=== PATIENT | female | born 1990 | race Asian ===

== ENCOUNTER 2017-03-29 15:36 | Outpatient (CLI) | payer BC ==
[2017-03-29 15:50] VITALS: BP 127/73
[2017-03-29] MEDS ORDERED: VITAMIN B COMP1 EACH PO (16:14)
[2017-03-29] MEDS ORDERED: PRENATAL TABLE1 EAC3 PO (16:15)
== END 2017-03-29 16:30 | disposition home or self-care (01) ==
LOC: LDRP-OP 15:36 → 2WEST 15:37 → LDRP-OP 06-22 13:37
DX: Z03.79 Encounter for other suspected maternal and fetal conditions ruled out (principal); Z3A.00 Weeks of gestation of pregnancy not specified
CPT/HCPCS: 59025; G0378

== ENCOUNTER 2017-05-23 20:09 | Inpatient (IN) | payer BC ==
[~2017-05-23] VITALS: Ht 154.9 cm; Wt 87.1 kg
[2017-05-23] VITALS (8 sets, daily range): BP systolic 122–136; BP diastolic 59–92
[~2017-05-23 20:09] MED LIST: PRENATAL TABLE1 EAC3 PO; VITAMIN B COMP1 EACH PO
[2017-05-23 21:13] LABS: EOSINOPHIL (%) 0.4 % (0-5); HEMATOCRIT 34.8 % (36.0-46.0); IMMATURE GRANULOCYTE (%) 0.4 % (0.0-0.7); LYMPHOCYTE COUNT 1.7 K/uL (1.0-2.8); MCH 31.6 PG (29.0-34.0); MCHC 34.2 G/DL (30.0-36.0); MCV 92.3 FL (83-99); MEAN PLAT.VOLUME 10.5 uM^3 (9.5-12.4); MONOCYTE (%) 8.1 % (3-12); MONOCYTE COUNT 0.6 K/uL (0-0.8); NEUTROPHIL (%) 67.5 % (45-76); PLATELET COUNT 254 K/uL (156-360); RBC DIS.WIDTH-SD 46.7 % (39-53); RED BLOOD COUNT 3.77 M/uL (3.80-5.20); WHITE BLOOD COUNT 7.4 K/uL (4.1-10.2)
[2017-05-23] MEDS ORDERED: ZOFRAN4 MG PO (21:26)
[2017-05-23] MEDS ORDERED: REGLAN5 MG PO (21:27)
[2017-05-24] VITALS (20 sets, daily range): BP systolic 104–132; BP diastolic 56–88
[2017-05-24] MEDS ORDERED: ENDOCET 5-3251 EACH PO (13:29)
[2017-05-24] MEDS ORDERED: IBUPROFEN800 MG PO (13:29)
[2017-05-25 01:03] VITALS: BP 113/67
[2017-05-25 02:48] VITALS: BP 120/74
[2017-05-25 06:54] LABS: EOSINOPHIL (%) 0.3 % (0-5); HEMATOCRIT 27.8 % (36.0-46.0); IMMATURE GRANULOCYTE (%) 0.5 % (0.0-0.7); IMMATURE GRANULOCYTE COUNT 0.1 K/uL; INSTRUMENT ABS NEUTROPHIL CT 8.7 K/uL; LYMPHOCYTE COUNT 2.3 K/uL (1.0-2.8); MCH 31.3 PG (29.0-34.0); MCHC 33.1 G/DL (30.0-36.0); MCV 94.6 FL (83-99); MEAN PLAT.VOLUME 10.8 uM^3 (9.5-12.4); MONOCYTE (%) 8.2 % (3-12); NEUTROPHIL (%) 71.7 % (45-76); NEUTROPHIL COUNT 8.7 K/uL (1.8-6.4); PLATELET COUNT 188 K/uL (156-360); RBC DIS.WIDTH-CV 14.5 % (11.8-14.6); WHITE BLOOD COUNT 12.1 K/uL (4.1-10.2)
[2017-05-25 06:55] LABS: RED BLOOD COUNT 2.94 M/uL (3.80-5.20)
[2017-05-25 07:18] VITALS: BP 127/76
[2017-05-25 11:07] VITALS: BP 118/72
[2017-05-25 14:59] VITALS: BP 132/75
[2017-05-26 07:28] VITALS: BP 129/78
[2017-05-26 11:39] VITALS: BP 117/74
[2017-05-26 14:45] VITALS: BP 119/74
[2017-05-26 23:00] VITALS: BP 120/87
== END 2017-05-27 13:24 | disposition home health service (06) | DRG 766 ==
LOC: LDRP-OP 20:09 → 2WEST 20:12 → LDRP-OP 06-22 17:39
PROVIDERS: Advanced Practice Midwife; Obstetrics & Gynecology
PROC: 10D00Z1 Extraction of Products of Conception, Low, Open Approach (ICD-10-PCS; principal; 2017-05-24)
DX: O62.1 Secondary uterine inertia (principal); O76 Abnormality in fetal heart rate and rhythm complicating labor and delivery; Z37.0 Single live birth; Z3A.39 39 weeks gestation of pregnancy; O99.824 Streptococcus B carrier state complicating childbirth; O69.81X1 Labor and delivery complicated by cord around neck, without compression, fetus 1; O62.0 Primary inadequate contractions; O33.8 Maternal care for disproportion of other origin
CPT/HCPCS: 85025; 86850; 86900; 86901; C1755; G0378; J0690; J1170; J2540; J3010; J7120